=== PATIENT | male | born 1950 | race Caucasian/White ===

== ENCOUNTER 2024-12-03 09:35 | Emergency (ER) | payer MEDICARE, MEDICAID ==
[~2024-12-03] VITALS: Ht 185.4 cm; Wt 92.7 kg
[2024-12-03 09:44] VITALS: BP 143/76; PULSE 100; RESP 18; O2SAT 100
--- NOTE | 2024-12-03 11:26 | Physician Documentation ---
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 He denies any recent falls. No attempted treatment. Denies any bowel or bladder symptoms.. Medication Reconciliation Allergies: Coded Allergies: No Known Allergies (Unverified , 12/03/24) Review of Systems Constitutional: Denies: fever Gastrointestinal: Denies: abdomen distended, abdominal pain Neurological: Denies: headache Physical Exam Physical Exam Vital Signs: RN Vital Signs have been reviewed: Yes, Temperature: 97.9, Source: Temporal, Heart Rate: 100, Respiratory Rate: 18, BP: 143/76, Pulse Oximetry: 100, Weight: 92.730 Oxygen Flow Rate: 0 Physical Exam Well-appearing no distress resting comfortably in bed No JVD Moist mucous membranes Pulmonary clear to auscultation bilaterally Cardiac no murmur Abdomen is soft nontender Lower extremity no edema Awake alert oriented back ttp lateral right thoracic region. No bony ttp, no midline ttp. Progress Progress Note Independent interpretation of UA shows no infection or hematuria Results/Orders Results/Orders Orders - LAWANDA FINNEGAN MD Thoracic Spine Complete (12/03/24 12:24) Completed Orders - LAWANDA FINNEGAN MD Ibuprofen Tablet (Motrin Tablet) (12/03/24 12:25) Urinalysis, Cult If Indicated (12/03/24 12:24) Thoracic Spine Complete (12/03/24 12:24) Medications Received in ER Medications (Trade) Dose Ordered Sig/Sam Route PRN Reason Start Time Stop Time Status Last Admin Dose Admin (Motrin tablet) 400 mg ONCE ONCE PO 12/03/24 12:25 12/03/24 12:29 DC 12/03/24 13:08 400 MG Vital Signs 12/03/24 09:44 Temp 97.9 Pulse 100 Resp 18 B/P (MAP) 143/76 Pulse Ox 100 O2 Flow Rate 0 Laboratory Tests Test 12/03/24 13:11 Urine Specimen Description Cln catch midstream Urine Color Straw Urine Clarity Clear Urine pH 5.5 Urine Specific [place] 1.015 Urine Protein Negative Urine Glucose (UA) Negative Urine Ketones Negative Urine Occult Blood Negative Urine Nitrite Negative Urine Bilirubin Negative Urine Urobilinogen 0.2 Urine Leukocyte Esterase Negative Urine Culture Indicated Not ind Volume Urine Centrifuged 10 ml Urine Comment EKG/XRAY/CT/US/VASC/MRI Bone/Soft Tissue X-Ray (Spine) : Additional Comment Independent interpretation of x-ray shows no acute fracture normal alignment no mass Departure Disposition: 01 HOME / SELF CARE / HOMELESS Impression: Primary Impression: Contusion Qualified Codes: S30.0XXA - Contusion of lower back and pelvis, initial encounter Additional Instructions: His test today were all reassuring. This is just a bruise which will heal with ibuprofen and Tylenol. Referrals: NO PRIMARY CARE PROVIDER (PCP) Signature Scribe Signature: na Attestation: LAWANDA Brooks MD December 03, 2024 11:25
--- NOTE | 2024-12-03 13:02 | RADIOLOGY REPORT ---
CLINICAL INDICATION: back pain TECHNIQUE: 3 radiographic views of the thoracic spine were obtained. Comparison: None FINDINGS/IMPRESSION: Upper thoracic vertebrae is obscured by the shoulder. Mild straightening of the thoracic kyphosis. Th e visualized vertebral body heights are maintained. Anterior bridging osteophytes of the mid and lowe r thoracic spine. Lucency overlying the left lower thoracic rib which may be from overlying structures. Otherwise, No e vidence of acute traumatic fractures or spondylolisthesis of the visualized vertebrae. The visualized lungs are clear.
[2024-12-03] MEDS: ibuprofen tablet 400 MG TABLET PO ONE (13:08)
[2024-12-03 13:30] LABS: BILIRUBIN,URINE NEGATIVE (Neg); CLARITY,URINE CLEAR (Clear); COLOR,URINE STRAW (Yellow); GLUCOSE, URINE NEGATIVE (Neg); KETONES,URINE NEGATIVE (Neg); LEUKOCYTE ESTERASE ,URINE NEGATIVE (Neg); NITRITES, URINE NEGATIVE (Neg); OCCULT BLOOD,URINE NEGATIVE (Neg); PH,URINE 5.5 (4.8-8.0); PROTEIN,URINE NEGATIVE (Neg); UROBILINOGEN,URINE 0.2 E.U/dL (0.2-1.0)
[2024-12-03 13:31] LABS: UA COLLECTION TYPE CLN CATCH MIDSTREAM
[2024-12-03 14:05] VITALS: TEMP 97.9
== END 2024-12-03 14:07 | disposition home or self-care (01) ==
LOC: ER 09:36
DX: S30.0XXA Contusion of lower back and pelvis, initial encounter (principal); X58.XXXA Exposure to other specified factors, initial encounter; Y93.89 Activity, other specified; Y92.89 Other specified places as the place of occurrence of the external cause; Y99.8 Other external cause status
CPT/HCPCS: 72074; 81003; 99284